=== PATIENT | male | born 1980 | race African-American/Black ===

== ENCOUNTER 2016-06-16 10:55 | Inpatient (IN) | payer MEDICAID ==
[~2016-06-16] VITALS: Ht 170.2 cm; Wt 72.9 kg
[~2016-06-16 10:55] MED LIST: ALBUAER3 IN; IPRIH INH; LEVO500T3 PO
[2016-06-16] MEDS ORDERED: ACETAMINOPHEN 500 MG TAB PO ONE ×2 (11:19→11:30)
[2016-06-16 12:05] LABS: Basophils # (auto) 0 uL; DEFINITIVE VIEW TRANSMISSION; Eosinophils # (auto) 0 uL; Hematocrit 41.2 % (41.0-53.0); Hemoglobin 12.9 g/dL (13.5-17.5); Lymphocytes # (auto) 1.2 uL; Lymphocytes % (auto) 12.8 % (10.0-50.0); Mean Corpuscular Hemoglobin 23.8 pg (28.0-32.0); Mean Corpuscular Hgb Conc. 31.3 g/dL (32.0-36.0); Mean Corpuscular Volume 76.1 fL (80.0-100.0); Monocytes # (auto) 0.8 uL; Monocytes % (auto) 8.5 % (0.0-12.0); Neutrophils # (auto) 7.3 uL; Neutrophils % (auto) 78.7 % (37.0-80.0); Platelet Count (auto) 412 10^3/uL (140-450); Red Cell Distribution Width 18.6 % (11.6-16.0); SUSPECT VIEW TRANSMISSION; White Blood Cell 9.3 10^3/uL (4.4-10.8)
[2016-06-16 12:48] LABS: Albumin 2.9 g/dL (3.4-5.0); BUN/Creatinine Ratio 9.8; Bilirubin, Total 0.9 mg/dL (0.2-1.0); Calcium 9.3 mg/dL (8.5-10.1); Potassium 3.2 mmol/L (3.5-5.1); Total Protein 8.8 g/dL (6.4-8.2)
[2016-06-16] MEDS ORDERED: methylPREDNISolone SOD SUCC 125 MG/2 ML VL IV ONE (15:30)
[2016-06-16] MEDS ORDERED: LEVOFLOXACIN 750MG 150 ML IV ONE (15:30)
[2016-06-16] MEDS ORDERED: SODIUM CHLORIDE 0.9% 1,000 ML IV ONE ×2 (15:30→17:15)
[2016-06-16] MEDS ORDERED: LEVOFLOXACIN 500MG 100 ML IV ONE (16:00)
[2016-06-16 16:02] LABS: Magnesium 2.6 mg/dL (1.6-2.6)
[2016-06-16 16:13] LABS: B-Type Natriuretic Peptide 7.17 pg/mL (0-100)
[2016-06-16] MEDS ORDERED: PROMETHAZINE HCL 25 MG/ML 1ML IV PRN (16:15)
[2016-06-16] MEDS ORDERED: LACTULOSE 20Gm/30ML SOLN PO PRN (16:15)
[2016-06-16] MEDS ORDERED: PIPERACILLIN-TAZOB 3.375GM 100 ML IV ONE (16:15)
[2016-06-16] MEDS ORDERED: LORazepam 0.5 MG TAB PO PRN (16:15)
[2016-06-16] MEDS ORDERED: TEMAZEPAM 15 MG CAP PO PRN (16:15)
[2016-06-16] MEDS ORDERED: ALBUTEROL SULF 2.5 MG/0.5ML(0.5%) NEB SOLN NEB PRN (16:15)
[2016-06-16] MEDS ORDERED: MORPHINE SULF INJ 2 MG/ML SYRINGE 1ML IV PRN ×2 (16:15)
[2016-06-16] MEDS ORDERED: VANCOMYCIN PER PHARMACY 0 MG IV SCH (16:15)
[2016-06-16] MEDS ORDERED: VANCOMYCIN 1GM/250ML D5W 250 ML IV ONE (16:15)
[2016-06-16] MEDS ORDERED: ACYCLOVIR 5MG/KG Q8HR PER RX 0 ML IV SCH (16:15)
[2016-06-16] MEDS ORDERED: OSELTAMIVIR 75 MG CAP PO ONE (16:15)
[2016-06-16] MEDS ORDERED: NITROGLYCERIN 0.4 MG SL TAB SL PRN (16:15)
[2016-06-16] MEDS ORDERED: ACETAMINOPHEN 500 MG TAB PO PRN (16:15)
[2016-06-16] MEDS ORDERED: BACTRIM 5MG/KG Q8HR PER RX 0 ML IV SCH (16:15)
[2016-06-16] MEDS ORDERED: SODIUM CHLORIDE 0.9% 1,000 ML IV SCH (16:24)
[2016-06-16 16:25] LABS: Temperature: 22.4 C (20.0-25.0)
[2016-06-16] MEDS ORDERED: ENOXAPARIN SOD 40 MG/0.4 ML SYRINGE SC ONE (16:30)
[2016-06-16] MEDS ORDERED: AZITHROMYCIN 500MG/D5W 250ML 250 ML IV ONE (16:30)
[2016-06-16] MEDS ORDERED: ACETAMINOPHEN 325 MG TAB PO ONE (16:45)
[2016-06-16] MEDS ORDERED: OSELTAMIVIR 75 MG CAP PO SCH (17:00)
[2016-06-16] MEDS: FLUCONAZOLE 200MG/100ML 100 ML IV SCH ×2 (17:35→18:42)
[2016-06-16] MEDS: SODIUM CHLORIDE 0.9% 1,000 ML IV SCH (18:10)
[2016-06-16] MEDS: PIPERACILLIN-TAZOB 3.375GM 100 ML IV SCH ×2 (18:32→23:32)
[2016-06-16] MEDS: IPRATROPIUM BROM 0.5 MG/2.5ML INH SOL NEB SCH (18:42)
[2016-06-16] MEDS: ALBUTEROL SULF 2.5 MG/0.5ML(0.5%) NEB SOLN NEB SCH (18:42)
[2016-06-16] MEDS: VANCOMYCIN 750 MG in D5W 5% 250 ML IV SCH (19:51)
[2016-06-16 20:21] LABS: Partial Thromboplastin Time 36.4 sec (22.64-33.71)
[2016-06-16 20:29] LABS: INR 1.17 (0.9-1.15)
[2016-06-16 21:50] VITALS: BP 135/77
[2016-06-16 22:00] VITALS: BP 132/68
[2016-06-16] MEDS ORDERED: SODIUM CHL 0.9% IV SCH (22:00)
[2016-06-16] MEDS ORDERED: ACYCLOVIR SOD IV SCH (22:00)
[2016-06-16] MEDS: SULFAMETH-TRIMETH 80/16MG-ML 20 ML in D5W 5% 500 ML IV SCH (22:00)
[2016-06-16] MEDS: ACYCLOVIR SOD IV SCH (22:24)
[2016-06-16] MEDS: D5W 5% IV SCH (22:24)
[2016-06-17] VITALS (7 sets, daily range): BP systolic 112–130; BP diastolic 63–80
[2016-06-17] MEDS: IPRATROPIUM BROM 0.5 MG/2.5ML INH SOL NEB SCH ×4 (00:24→19:56)
[2016-06-17] MEDS: ALBUTEROL SULF 2.5 MG/0.5ML(0.5%) NEB SOLN NEB SCH ×4 (00:24→19:55)
[2016-06-17] MEDS: ONDANSETRON HCL 4 MG/2 ML VIAL IV PRN (01:05)
[2016-06-17] MEDS: VANCOMYCIN 750 MG in D5W 5% 250 ML IV SCH ×2 (03:35→08:53)
[2016-06-17] MEDS: SODIUM CHLORIDE 0.9% 1,000 ML IV SCH ×3 (03:35→22:50)
[2016-06-17] MEDS: PIPERACILLIN-TAZOB 3.375GM 100 ML IV SCH ×4 (04:39→22:47)
[2016-06-17] MEDS: SULFAMETH-TRIMETH 80/16MG-ML 20 ML in D5W 5% 500 ML IV SCH ×3 (05:20→22:00)
[2016-06-17 06:01] LABS: Basophils # (auto) 0 uL; DEFINITIVE VIEW TRANSMISSION; Eosinophils # (auto) 0 uL; Hematocrit 32.6 % (41.0-53.0); Hemoglobin 10.3 g/dL (13.5-17.5); Lymphocytes # (auto) 0.6 uL; Lymphocytes % (auto) 6.1 % (10.0-50.0); Mean Corpuscular Hemoglobin 23.9 pg (28.0-32.0); Mean Corpuscular Hgb Conc. 31.7 g/dL (32.0-36.0); Mean Corpuscular Volume 75.3 fL (80.0-100.0); Mean Platelet Volume 9.7 fL (7.4-10.4); Monocytes # (auto) 0.3 uL; Monocytes % (auto) 3.1 % (0.0-12.0); Neutrophils # (auto) 9.3 uL; Neutrophils % (auto) 90.8 % (37.0-80.0); Platelet Count (auto) 396 10^3/uL (140-450); Red Cell Distribution Width 18.8 % (11.6-16.0); SUSPECT VIEW TRANSMISSION; White Blood Cell 10.2 10^3/uL (4.4-10.8)
[2016-06-17 06:24] LABS: Albumin 2.2 g/dL (3.4-5.0); BUN/Creatinine Ratio 10.4; Bilirubin, Total 0.4 mg/dL (0.2-1.0); Calcium 8.1 mg/dL (8.5-10.1); Potassium 3.6 mmol/L (3.5-5.1); Total Protein 6.9 g/dL (6.4-8.2)
[2016-06-17] MEDS: ACYCLOVIR SOD IV SCH ×3 (06:37→22:00)
[2016-06-17] MEDS: D5W 5% IV SCH ×3 (06:37→22:00)
[2016-06-17] MEDS: FLUCONAZOLE 200MG/100ML 100 ML IV SCH ×2 (08:53→10:18)
[2016-06-17] MEDS: ENOXAPARIN SOD 40 MG/0.4 ML SYRINGE SC SCH (10:17)
[2016-06-17] MEDS: AZITHROMYCIN 500MG/D5W 250ML 250 ML IV SCH (10:17)
[2016-06-17] MEDS: VANCOMYCIN 1GM/250ML D5W 250 ML IV SCH (18:21)
[2016-06-18] MEDS: IPRATROPIUM BROM 0.5 MG/2.5ML INH SOL NEB SCH ×4 (00:42→18:15)
[2016-06-18] MEDS: ALBUTEROL SULF 2.5 MG/0.5ML(0.5%) NEB SOLN NEB SCH ×4 (00:42→18:15)
[2016-06-18] MEDS: VANCOMYCIN 1GM/250ML D5W 250 ML IV SCH ×3 (01:56→18:20)
[2016-06-18] MEDS: PIPERACILLIN-TAZOB 3.375GM 100 ML IV SCH ×4 (05:01→22:13)
[2016-06-18 05:05] VITALS: BP 125/68
[2016-06-18 05:55] LABS: Basophils # (auto) 0 uL; Basophils % (auto) 0.1 % (0.0-2.0); DEFINITIVE VIEW TRANSMISSION; Eosinophils # (auto) 0 uL; Eosinophils % (auto) 0.1 % (0.0-7.0); Hematocrit 34.3 % (41.0-53.0); Hemoglobin 10.8 g/dL (13.5-17.5); Lymphocytes # (auto) 0.9 uL; Lymphocytes % (auto) 5.5 % (10.0-50.0); Mean Corpuscular Hgb Conc. 31.5 g/dL (32.0-36.0); Mean Platelet Volume 9.9 fL (7.4-10.4); Neutrophils # (auto) 15.1 uL; Neutrophils % (auto) 88.3 % (37.0-80.0); Platelet Count (auto) 439 10^3/uL (140-450); Red Cell Distribution Width 18.8 % (11.6-16.0); SUSPECT VIEW TRANSMISSION; White Blood Cell 17.1 10^3/uL (4.4-10.8)
[2016-06-18 06:12] LABS: Calcium 8.1 mg/dL (8.5-10.1); Potassium 3.3 mmol/L (3.5-5.1)
[2016-06-18 06:16] LABS: Albumin 2.3 g/dL (3.4-5.0); BUN/Creatinine Ratio 7.3
[2016-06-18 06:18] LABS: Bilirubin, Total 0.2 mg/dL (0.2-1.0); Total Protein 6.6 g/dL (6.4-8.2)
[2016-06-18] MEDS: D5W 5% IV SCH ×3 (06:31→22:13)
[2016-06-18] MEDS: ACYCLOVIR SOD IV SCH ×3 (06:31→22:13)
[2016-06-18] MEDS: SULFAMETH-TRIMETH 80/16MG-ML 20 ML in D5W 5% 500 ML IV SCH (06:32)
[2016-06-18 09:00] VITALS: BP 128/70
[2016-06-18] MEDS: SODIUM CHLORIDE 0.9% 1,000 ML IV SCH ×2 (09:30→22:11)
[2016-06-18] MEDS ORDERED: POTASSIUM CHLORIDE 40 MEQ, LIDOCAINE 1% (LOCAL ANESTH.) 4 ML in SODIUM CHL 0.9% 250 ML IV ONE (09:30)
[2016-06-18] MEDS: FLUCONAZOLE 200MG/100ML 100 ML IV SCH ×2 (09:54→11:29)
[2016-06-18] MEDS: ENOXAPARIN SOD 40 MG/0.4 ML SYRINGE SC SCH (09:54)
[2016-06-18] MEDS: ONDANSETRON HCL 4 MG/2 ML VIAL IV PRN ×3 (11:30→22:28)
[2016-06-18] MEDS: AZITHROMYCIN 500MG/D5W 250ML 250 ML IV SCH (12:40)
[2016-06-18 12:52] VITALS: BP 137/75
[2016-06-18 16:37] VITALS: BP 128/80
[2016-06-18 20:02] VITALS: BP 128/80
[2016-06-18 21:22] VITALS: BP 131/76
[2016-06-19] MEDS: VANCOMYCIN 1GM/250ML D5W 250 ML IV SCH (02:08)
[2016-06-19] MEDS: SODIUM CHLORIDE 0.9% 1,000 ML IV SCH ×2 (05:09→15:30)
[2016-06-19] MEDS: PIPERACILLIN-TAZOB 3.375GM 100 ML IV SCH (05:09)
[2016-06-19 05:10] VITALS: BP 124/67
[2016-06-19] MEDS: ACYCLOVIR SOD IV SCH (05:10)
[2016-06-19] MEDS: D5W 5% IV SCH (05:10)
[2016-06-19 05:33] LABS: Basophils # (auto) 0 uL; Basophils % (auto) 0.4 % (0.0-2.0); DEFINITIVE VIEW TRANSMISSION; Eosinophils # (auto) 0 uL; Eosinophils % (auto) 0.2 % (0.0-7.0); Hematocrit 32.3 % (41.0-53.0); Hemoglobin 10.5 g/dL (13.5-17.5); Lymphocytes # (auto) 0.9 uL; Lymphocytes % (auto) 8.3 % (10.0-50.0); Mean Corpuscular Hemoglobin 24.3 pg (28.0-32.0); Mean Corpuscular Hgb Conc. 32.4 g/dL (32.0-36.0); Mean Corpuscular Volume 75.1 fL (80.0-100.0); Mean Platelet Volume 9.1 fL (7.4-10.4); Monocytes # (auto) 1.1 uL; Monocytes % (auto) 10.7 % (0.0-12.0); Neutrophils # (auto) 8.5 uL; Neutrophils % (auto) 80.4 % (37.0-80.0); Platelet Count (auto) 433 10^3/uL (140-450); Red Cell Distribution Width 18.4 % (11.6-16.0); White Blood Cell 10.6 10^3/uL (4.4-10.8)
[2016-06-19 06:09] LABS: Calcium 7.9 mg/dL (8.5-10.1); Potassium 3.5 mmol/L (3.5-5.1)
[2016-06-19 06:11] LABS: BUN/Creatinine Ratio 4.1
[2016-06-19 06:15] LABS: Bilirubin, Total 0.4 mg/dL (0.2-1.0); Total Protein 6.2 g/dL (6.4-8.2)
[2016-06-19] MEDS: IPRATROPIUM BROM 0.5 MG/2.5ML INH SOL NEB SCH ×4 (07:13→19:56)
[2016-06-19] MEDS: ALBUTEROL SULF 2.5 MG/0.5ML(0.5%) NEB SOLN NEB SCH ×4 (07:13→19:56)
[2016-06-19 08:13] VITALS: BP 122/48
[2016-06-19] MEDS: AZITHROMYCIN 250 MG TAB PO SCH (10:36)
[2016-06-19] MEDS: ENOXAPARIN SOD 40 MG/0.4 ML SYRINGE SC SCH (10:36)
[2016-06-19 12:12] VITALS: BP 125/62
[2016-06-19] MEDS: AMOXICILLIN TRIHYDRATE 250 MG CAP PO SCH ×2 (15:28→21:34)
[2016-06-19 16:54] VITALS: BP 128/71
[2016-06-19] MEDS: ONDANSETRON HCL 4 MG/2 ML VIAL IV PRN (18:02)
[2016-06-19 21:19] VITALS: BP 128/71
[2016-06-19 22:00] VITALS: BP_SYST 131; BP_SYST 133; BP_DIAS 66; BP_DIAS 74
[2016-06-20] MEDS: IPRATROPIUM BROM 0.5 MG/2.5ML INH SOL NEB SCH ×4 (01:02→18:39)
[2016-06-20] MEDS: ALBUTEROL SULF 2.5 MG/0.5ML(0.5%) NEB SOLN NEB SCH ×4 (01:03→18:39)
[2016-06-20] MEDS: SODIUM CHLORIDE 0.9% 1,000 ML IV SCH ×3 (01:30→21:07)
[2016-06-20 05:00] VITALS: BP 129/80
[2016-06-20] MEDS: AMOXICILLIN TRIHYDRATE 250 MG CAP PO SCH (06:07)
[2016-06-20] MEDS: AZITHROMYCIN 250 MG TAB PO SCH (07:58)
[2016-06-20] MEDS: ENOXAPARIN SOD 40 MG/0.4 ML SYRINGE SC SCH (07:58)
[2016-06-20 09:04] VITALS: BP 135/78
[2016-06-20 12:07] VITALS: BP 137/85
[2016-06-20] MEDS: AMPICILLIN SOD 2GM INJ 2 GM in SODIUM CHL 0.9% 100 ML IV SCH ×2 (13:15→18:25)
[2016-06-20 17:34] VITALS: BP 137/92
[2016-06-20 21:25] VITALS: BP 111/69
[2016-06-21] MEDS: AMPICILLIN SOD 2GM INJ 2 GM in SODIUM CHL 0.9% 100 ML IV SCH ×5 (00:03→23:50)
[2016-06-21 05:03] VITALS: BP 131/88
[2016-06-21] MEDS: ALBUTEROL SULF 2.5 MG/0.5ML(0.5%) NEB SOLN NEB SCH ×3 (06:00→18:33)
[2016-06-21] MEDS: IPRATROPIUM BROM 0.5 MG/2.5ML INH SOL NEB SCH ×3 (06:00→18:00)
[2016-06-21 06:21] LABS: Basophils # (auto) 0 uL; Basophils % (auto) 0.1 % (0.0-2.0); DEFINITIVE VIEW TRANSMISSION; Eosinophils # (auto) 0.1 uL; Eosinophils % (auto) 1.5 % (0.0-7.0); Hematocrit 31.1 % (41.0-53.0); Lymphocytes # (auto) 0.9 uL; Lymphocytes % (auto) 13.9 % (10.0-50.0); Mean Corpuscular Hemoglobin 24.2 pg (28.0-32.0); Mean Corpuscular Hgb Conc. 32.2 g/dL (32.0-36.0); Mean Corpuscular Volume 75.1 fL (80.0-100.0); Mean Platelet Volume 8.9 fL (7.4-10.4); Monocytes # (auto) 0.9 uL; Monocytes % (auto) 13.2 % (0.0-12.0); Neutrophils # (auto) 4.7 uL; Neutrophils % (auto) 71.3 % (37.0-80.0); Platelet Count (auto) 498 10^3/uL (140-450); Red Cell Distribution Width 19.4 % (11.6-16.0); White Blood Cell 6.7 10^3/uL (4.4-10.8)
[2016-06-21 06:40] LABS: Potassium 3.3 mmol/L (3.5-5.1)
[2016-06-21 06:45] LABS: Albumin 1.8 g/dL (3.4-5.0); BUN/Creatinine Ratio 7.7; Calcium 7.8 mg/dL (8.5-10.1)
[2016-06-21 06:47] LABS: Bilirubin, Total 0.4 mg/dL (0.2-1.0); Total Protein 5.8 g/dL (6.4-8.2)
[2016-06-21 08:30] VITALS: BP 125/75
[2016-06-21] MEDS: ENOXAPARIN SOD 40 MG/0.4 ML SYRINGE SC SCH (10:00)
[2016-06-21] MEDS: AZITHROMYCIN 250 MG TAB PO SCH (10:43)
[2016-06-21] MEDS: SODIUM CHLORIDE 0.9% 1,000 ML IV SCH ×3 (10:45→23:50)
[2016-06-21 11:30] VITALS: BP 127/81
[2016-06-21] MEDS ORDERED: POTASSIUM CHL 20 Meq TABLET PO ONE (13:00)
[2016-06-21] MEDS: SULFAMETHOX W/TRIMETH(800/160MG) DS TAB PO SCH ×2 (13:18→21:54)
[2016-06-21] MEDS: HYDROcodone-ACET 5/325MG TAB PO PRN (15:52)
[2016-06-21 16:23] VITALS: BP 142/93
[2016-06-21 21:04] VITALS: BP 140/78
[2016-06-22] MEDS: IPRATROPIUM BROM 0.5 MG/2.5ML INH SOL NEB SCH ×2 (00:34→06:14)
[2016-06-22] MEDS: ALBUTEROL SULF 2.5 MG/0.5ML(0.5%) NEB SOLN NEB SCH ×2 (00:34→06:14)
[2016-06-22 05:20] LABS: Basophils # (auto) 0 uL; Basophils % (auto) 0.1 % (0.0-2.0); DEFINITIVE VIEW TRANSMISSION; Eosinophils # (auto) 0.1 uL; Eosinophils % (auto) 1.6 % (0.0-7.0); Hematocrit 31.1 % (41.0-53.0); Hemoglobin 9.9 g/dL (13.5-17.5); Lymphocytes # (auto) 0.8 uL; Lymphocytes % (auto) 14.1 % (10.0-50.0); Mean Corpuscular Hemoglobin 23.9 pg (28.0-32.0); Mean Corpuscular Hgb Conc. 31.8 g/dL (32.0-36.0); Mean Corpuscular Volume 75.1 fL (80.0-100.0); Mean Platelet Volume 8.3 fL (7.4-10.4); Monocytes % (auto) 16.4 % (0.0-12.0); Neutrophils # (auto) 4.1 uL; Neutrophils % (auto) 67.8 % (37.0-80.0); Platelet Count (auto) 497 10^3/uL (140-450); Red Cell Distribution Width 18.9 % (11.6-16.0)
[2016-06-22 05:39] LABS: BUN/Creatinine Ratio 5.4; Calcium 8.1 mg/dL (8.5-10.1); Potassium 3.6 mmol/L (3.5-5.1)
[2016-06-22] MEDS: AMPICILLIN SOD 2GM INJ 2 GM in SODIUM CHL 0.9% 100 ML IV SCH ×2 (05:50→12:00)
[2016-06-22 05:51] VITALS: BP 148/85
[2016-06-22 06:06] LABS: Hematocrit 31.7 % (37.5-51.0); Hemoglobin 9.9 g/dL (12.6-17.7); Immature Granulocytes 3 % (.); MCH 23.5 pg (26.6-33.0); MCHC 31.2 g/dL (31.5-35.7); MCV 75 fL (79-97); Monocytes 9 % (.); Neutrophils 68 % (.); Platelets 517 x10E3/uL (150-379); RBC 4.21 x10E6/uL (4.14-5.80); RDW 17.6 % (12.3-15.4)
[2016-06-22 09:32] VITALS: BP 144/80
[2016-06-22] MEDS: ENOXAPARIN SOD 40 MG/0.4 ML SYRINGE SC SCH (10:00)
[2016-06-22] MEDS: HYDROcodone-ACET 5/325MG TAB PO PRN (10:04)
[2016-06-22] MEDS: SULFAMETHOX W/TRIMETH(800/160MG) DS TAB PO SCH (10:04)
[2016-06-22] MEDS: AZITHROMYCIN 250 MG TAB PO SCH (10:05)
[2016-06-22 10:36] VITALS: BP 144/80
[2016-06-22 13:11] LABS: Absolute CD 4 Helper 29 /uL (359-1519)
== END 2016-06-22 12:40 | disposition home or self-care (01) | DRG 890 ==
LOC: ER 10:55 → TELE 10:56 → TELE-EAST 20:30
PROVIDERS: ADMIT Internal Medicine; ATTEND Internal Medicine
DX: B20 Human immunodeficiency virus [HIV] disease (principal); B37.1 Pulmonary candidiasis; J15.6 Pneumonia due to other Gram-negative bacteria; E43 Unspecified severe protein-calorie malnutrition; J12.9 Viral pneumonia, unspecified; J15.9 Unspecified bacterial pneumonia; B95.2 Enterococcus as the cause of diseases classified elsewhere; J45.909 Unspecified asthma, uncomplicated; E87.6 Hypokalemia; N39.0 Urinary tract infection, site not specified; D63.8 Anemia in other chronic diseases classified elsewhere; Z68.25 Body mass index [BMI] 25.0-25.9, adult; Z82.49 Family history of ischemic heart disease and other diseases of the circulatory system; Z91.19 Patient's noncompliance with other medical treatment and regimen
CPT/HCPCS: 36415; 71020; 71250; 80048; 80053; 80061; 80202; 83605; 83735; 83880; 84484; 85025; 85610; 85730; 86360; 87040; 87070; 87086; 87088; 87186; 87205; 87400; 87449; 93005; 94640; 96365; 96366; 96368; 96372; 96375; J1450; J1956; J2001; J2405; J2543; J3490; J7060

== ENCOUNTER 2016-11-04 13:36 | Emergency (ER) | payer MEDICAID ==
[~2016-11-04] VITALS: Ht 177.8 cm; Wt 77.1 kg
[~2016-11-04 13:36] MED LIST changes: +LEVO500T21 PO; -LEVO500T3 PO
[2016-11-04 13:59] VITALS: BP 151/93
[2016-11-04] MEDS ORDERED: cefTRIAXone SODIUM 250 MG VL IM ONE (15:30)
== END 2016-11-04 17:42 | disposition home or self-care (01) ==
LOC: ER 13:40
DX: N45.3 Epididymo-orchitis (principal); J45.909 Unspecified asthma, uncomplicated
CPT/HCPCS: 76870; 96372; 99284; J0696

== ENCOUNTER 2016-12-24 10:02 | Emergency (ER) | payer MEDICAID ==
[~2016-12-24] VITALS: Ht 180.3 cm; Wt 80.3 kg
[2016-12-24 10:22] VITALS: BP 140/91
[2016-12-24] MEDS ORDERED: TETANUS-DIPTH-ACEL PERTUSSIS 0.5ML SYRG IM ONE (10:45)
== END 2016-12-24 11:00 | disposition home or self-care (01) ==
LOC: ER 10:02
DX: S61.217A Laceration without foreign body of left little finger without damage to nail, initial encounter (principal); J45.909 Unspecified asthma, uncomplicated; Z79.899 Other long term (current) drug therapy; W45.8XXA Other foreign body or object entering through skin, initial encounter; Y93.89 Activity, other specified; Y92.090 Kitchen in other non-institutional residence as the place of occurrence of the external cause; Y99.8 Other external cause status
CPT/HCPCS: 90471; 90715

== ENCOUNTER 2017-02-06 06:10 | Emergency (ER) | payer MEDICAID ==
[~2017-02-06] VITALS: Ht 180.3 cm; Wt 74.8 kg
[2017-02-06] MEDS ORDERED: ALBUTEROL SULF 2.5 MG/0.5ML(0.5%) NEB SOLN NEB STA (06:13)
[2017-02-06] MEDS ORDERED: IPRATROPIUM BROM 0.5 MG/2.5ML INH SOL NEB ONE ×3 (06:15→08:45)
[2017-02-06 08:00] VITALS: BP 165/98
[2017-02-06] MEDS ORDERED: ALBUTEROL SULF 2.5 MG/0.5ML(0.5%) NEB SOLN NEB ONE ×2 (08:00→08:45)
[2017-02-06] MEDS ORDERED: methylPREDNISolone SOD SUCC 125 MG/2 ML VL IM ONE (08:00)
== END 2017-02-06 09:40 | disposition home or self-care (01) ==
LOC: ER 06:12
DX: J45.901 Unspecified asthma with (acute) exacerbation (principal)
CPT/HCPCS: 71020; 94640; 94644; 96372; 99285; J2930

== ENCOUNTER 2022-06-21 10:11 | Emergency (ER) | payer MEDICAID ==
[~2022-06-21] VITALS: Ht 180.3 cm; Wt 82.0 kg
[~2022-06-21 10:11] MED LIST changes: -LEVO500T21 PO; +LEVO500T31 PO
[2022-06-21] MEDS ORDERED: cloNIDine HCL 0.1 MG TAB PO ONE (11:00)
[2022-06-21 11:38] LABS: Hematocrit 49.5 % (41.0-53.0); Mean Corpuscular Hemoglobin 27.1 pg (28.0-32.0); Mean Corpuscular Hgb Conc. 32.3 g/dL (32.0-36.0); Mean Corpuscular Volume 83.9 fL (80.0-100.0); Red Cell Distribution Width 16.8 % (11.8-14.3); White Blood Cell 8.8 10^3/uL (4.4-10.8)
[2022-06-21 11:43] LABS: INR 0.98 (0.9-1.15); Partial Thromboplastin Time 30.2 sec (24.6-33.4)
[2022-06-21 11:50] LABS: Band Neutrophils % (manual) 0; Basophils % (manual) 0 (0.0-2.0); Blast Cells 0; Metamyelocytes % 0; Reactive Lymphocytes 0
[2022-06-21 12:11] LABS: Albumin 4.5 g/dL (3.4-5.0); Calcium 9.1 mg/dL (8.5-10.1); Potassium 3.5 mmol/L (3.5-5.1)
[2022-06-21 12:14] LABS: BUN/Creatinine Ratio 5.8; Bilirubin, Total 0.3 mg/dL (0.2-1.0); Total Protein 8.6 g/dL (6.4-8.2)
[2022-06-21 12:26] LABS: Eosinophils % (manual) 1 (0-7); Lymphocytes % (manual) 40 (10.0-50.0); Monocytes % (manual) 3 (0-12); Myelocytes % 1; Promyelocytes % 2
[2022-06-21] MEDS ORDERED: LISI20TA28 PO (12:56)
[2022-06-21 13:13] VITALS: BP 171/109
== END 2022-06-21 13:14 | disposition home or self-care (01) ==
LOC: ER 10:11
DX: K92.2 Gastrointestinal hemorrhage, unspecified (principal); I16.0 Hypertensive urgency; F12.90 Cannabis use, unspecified, uncomplicated; J45.909 Unspecified asthma, uncomplicated; Z79.899 Other long term (current) drug therapy; Z98.890 Other specified postprocedural states
CPT/HCPCS: 36415; 74176; 80053; 85007; 85027; 85610; 85730

== ENCOUNTER 2022-06-27 06:12 | Emergency (ER) | payer MEDICAID ==
[~2022-06-27] VITALS: Ht 172.7 cm; Wt 80.5 kg
[~2022-06-27 06:12] MED LIST changes: +LISI20TA28 PO
[2022-06-27] MEDS ORDERED: FAMOTIDINE (10MG/ML) 2ML VL IV ONE (06:45)
[2022-06-27] MEDS ORDERED: MAALOX PLUS or MAALOX 30 ML PO ONE (06:45)
[2022-06-27] MEDS ORDERED: LIDOCAINE VISCOUS 2% 15ML UD PO ONE (06:45)
[2022-06-27] MEDS ORDERED: ONDANSETRON HCL 4 MG/2 ML VIAL IV ONE (06:45)
[2022-06-27] MEDS ORDERED: LACTATED RINGER'S 2,000 ML IV ONE (06:45)
[2022-06-27 07:54] LABS: Basophils # (auto) 0.1 10 ^3/uL (0-0.2); Basophils % (auto) 0.4 % (0.0-2.0); Eosinophils # (auto) 0.1 10 ^3/uL (0-0.8); Eosinophils % (auto) 1.1 % (0.0-7.0); Hematocrit 53.5 % (41.0-53.0); Hemoglobin 17.9 g/dL (13.5-17.5); Lymphocytes # (auto) 4.7 10 ^3/uL (0.4-5.4); Lymphocytes % (auto) 38.1 % (10.0-50.0); Mean Corpuscular Hemoglobin 27.8 pg (28.0-32.0); Mean Corpuscular Hgb Conc. 33.5 g/dL (32.0-36.0); Mean Corpuscular Volume 83.1 fL (80.0-100.0); Monocytes # (auto) 1.1 10 ^3/uL (0-1.3); Monocytes % (auto) 9.2 % (0.0-12.0); Neutrophils # (auto) 6.3 10 ^3/uL (1.6-8.6); Neutrophils % (auto) 51.2 % (37.0-80.0); Nucleated Red Blood Cells % 0.7 %; Red Blood Cells 6.44 10^6/uL (4.5-5.90); Red Cell Distribution Width 16.4 % (11.8-14.3); White Blood Cell 12.3 10^3/uL (4.4-10.8)
[2022-06-27 07:59] LABS: Alanine Aminotransferase 21 U/L (16-61); Anion Gap 13 (5-15); Aspartate Aminotransferase 23 U/L (15-37); BUN/Creatinine Ratio 6.4; Blood Alcohol < 3.0 mg/dL (0-5); Blood Urea Nitrogen 10 mg/dL (7-18); Calcium 10.2 mg/dL (8.5-10.1); Carbon Dioxide 24 mmol/L (21-32); Chloride 99 mmol/L (98-107); GFR African American 65 mL/min; GFR Non-African American 54 mL/min; Glucose 151 mg/dL (74-106); Lipase 80 U/L (73-393); Magnesium 2.4 mg/dL (1.6-2.6); Potassium 3.2 mmol/L (3.5-5.1); Sodium 136 mmol/L (136-145)
[2022-06-27 08:02] LABS: Alkaline Phosphatase 82 U/L (45-117); Bilirubin, Total 0.8 mg/dL (0.2-1.0)
[2022-06-27] MEDS: POTASSIUM CHL 20 Meq TABLET PO ONE ×2 (08:49→08:54)
[2022-06-27] MEDS ORDERED: POTASSIUM EFFERVESENT TAB 25 MEQ PO ONE (09:00)
[2022-06-27 09:20] LABS: Urine Bacteria NONE SEEN /hpf (None Seen); Urine Blood TRACE /uL (Negative); Urine Specific Gravity 1.007 (1.001-1.035); Urine WBC 7 /hpf (0 - 3)
[2022-06-27] MEDS ORDERED: ONDA-144 PO (12:25)
[2022-06-27] MEDS ORDERED: AMOX500C2 PO (12:27)
[2022-06-27 13:08] VITALS: BP 181/104
== END 2022-06-27 13:10 | disposition home or self-care (01) ==
LOC: ER 06:12
DX: J18.9 Pneumonia, unspecified organism (principal); N39.0 Urinary tract infection, site not specified; R94.31 Abnormal electrocardiogram [ECG] [EKG]; F12.10 Cannabis abuse, uncomplicated; J45.909 Unspecified asthma, uncomplicated; Z88.6 Allergy status to analgesic agent
CPT/HCPCS: 36415; 71046; 80053; 80320; 81001; 83690; 83735; 83880; 84484; 85025; 93005; 96361; 96374; 96375; 99285; J2405; J3490